=== PATIENT | male | born 1970 | race Caucasian/White ===

== ENCOUNTER 2023-09-27 01:56 | Inpatient (IN) | payer OTHER, SELFPAY ==
[2023-09-26 23:11] VITALS: BP 162/104
--- NOTE | 2023-09-26 23:40 | ED.GENMED ---
History of Present Illness
<ROGELIO Carrero - Last Filed: 09/27/23 00:53>
General
Chief Complaint: Skin Problem
Source: patient
Time Seen by Provider: 09/26/23 23:19
Travel History
Have you had any contact with someone who has COVID-19?: No
Do you have any symptoms of coronavirus? Fever > 100 degrees, chills, cough, shortness of breath, sore throat, loss of taste or smell, muscle aches, or headache?: No
History of Present Illness
History of Present Illness:
Pt is a 52 year old male who presents for a boil in his right axilla that he noticed on Monday. The area has become increasingly red, swollen, and tender since Monday, and he reports some purulent bloody discharge when he attempted to squeeze
the irritation. He also noticed firmness on his axilla, spreading downwards towards his chest beginning on Monday. He states he took 2 Advil when he got off the plane from [place] around 10 pm tonight, noting he came home early from his work trip due
to his worsening symptoms. He reports the Advil brought his pain from a 6/10 in severity to about a 2/10. he denies injury but notes on Monday he did play an intense round of tennis. He denies fever but admits to mild chills. He denies SOB, other
chest pain, sore throat, N/V, abdominal pain, diarrhea, or recent illness. Pt reports he travels for work, noting he went to [place] in July and August, [place] in mid-August, and most recently [place]. He states he is prone to ingrown hairs on his
scalp after going to the [employer], but denies similar in his axilla or groin. He denies known FHx of breast cancer.
Review of Systems
<ROGELIO Carrero - Last Filed: 09/27/23 00:53>
Review of Systems
All Other Systems: Not applicable
Constitutional: Reports weight loss (intentional) and chills
EENT: Reports no symptoms
Respiratory: Reports no symptoms
Cardiac: Reports no symptoms
ABD/GI: Reports no symptoms
: Reports no symptoms
Musculoskeletal: Reports no symptoms
Skin: Reports other (boil of right axilla)
Neurological: Reports no symptoms
Endocrine: Reports no symptoms
Hematologic/Lymphatic: Reports swollen glands (right axilla)
Psychiatric: Reports no symptoms
Phy Exam
<ROGELIO Carrero - Last Filed: 09/27/23 00:53>
General Physical Exam
General Presentation: well appearing and no apparent distress
General age: appears stated age
General Skin: warm, dry and other (Warm, erythematous boil-like mass with regional lymphadenopathy)
General Habitus: normal
General Mental: alert
General Hydration: appears well hydrated
ENT Exam
ENT Exam: EOMI and neck supple
Cardiovascular Exam
Cardiovascular Exam: regular rate/rhythm, no edema and no murmur
Pulmonary Exam
Pulmonary Exam: lungs clear and no respiratory distress
Chest Wall: Right lateral: tenderness
Gastrointestinal Exam
Gastrointestinal Exam: non tender, soft and non distended
Neurological Exam
Neurological Exam: alert and oriented x3
Musculoskeletal Exam
Musculoskeletal Exam: full ROM (of shoulder joints)
Skin Exam
Skin Exam: erythema, redness, tenderness and warmth
Psychiatric Exam
Psychiatric Exam: normal mood/affect
Course
<ROGELIO Carrero - Last Filed: 09/27/23 00:53>
Orders/Labs/Results
Orders:
Orders
09/26/23 23:38
CRP [C-Reactive Protein] Urgent
Complete Blood Count/With Diff Urgent
Comprehensive Metabolic Panel Urgent
Procalcitonin Urgent
PCT Algorithmm Indication: Sepsis
Sed Rate [Erythrocyte Sed Rate] Urgent
09/27/23 00:45
CT Chest With Iv Contrast Urgent
Reason For Exam: right sided mass, abscess
09/27/23 00:57
Piperacillin/Tazo 4.5 Gram [Zosyn] 4.5 gram in 100 ml IV NOW
09/27/23 00:59
Piperacillin/Tazo 4.5 Gram [Zosyn] 4.5 gram in 100 ml IV NOW
Abnormal Lab Results
09/26/23
23:38
WBC 13.2 H 10^3/uL
(4.8-10.8)
RBC 4.68 L 10^6/uL
(4.70-6.10)
MCH 31.8 H pg
(27.0-31.0)
Abs Immat Gran (auto) 0.1 H 10^3/uL
(0-0.05)
Absolute Neuts (auto) 10.2 H 10^3/uL
(1.4-6.5)
Absolute Monos (auto) 1.3 H 10^3/uL
(0.1-0.6)
Immature Gran % 0.8 H %
(0-0.5)
Neutrophils % 77.3 H %
(42.2-75.2)
Lymphocytes % 11.0 L %
(20.5-51.1)
Monocytes % 10.0 H %
(1.7-9.3)
ESR 34 H mm/hour
(0-20)
Glucose 110 H mg/dl
(70-99)
Total Bilirubin 1.5 H mg/dl
(0.2-1.3)
C-Reactive Protein 158.90 H mg/L
(0.0-10.00)
09/26/23 23:38
09/26/23 23:38
Vital Signs
Initial and Last Documented VS:
Initial Vital Signs
Temp Pulse Resp BP Pulse Ox
97.7 F 80 18 162/104 98
09/26/23 23:11 09/26/23 23:11 09/26/23 23:11 09/26/23 23:11 09/26/23 23:11
Last Documented Vital Signs
Temp Pulse Resp BP Pulse Ox
98.4 F 66 18 143/93 97
09/27/23 03:56 09/27/23 03:56 09/27/23 03:56 09/27/23 03:56 09/27/23 03:56
<Aleksey Jimenez, DO - Last Filed: 09/27/23 06:14>
Orders/Labs/Results
Orders:
Orders
09/26/23 23:38
CRP [C-Reactive Protein] Urgent
Complete Blood Count/With Diff Urgent
Comprehensive Metabolic Panel Urgent
Procalcitonin Urgent
PCT Algorithmm Indication: Sepsis
Sed Rate [Erythrocyte Sed Rate] Urgent
09/27/23 00:45
CT Chest With Iv Contrast Urgent
Reason For Exam: right sided mass, abscess
09/27/23 00:57
Piperacillin/Tazo 4.5 Gram [Zosyn] 4.5 gram in 100 ml IV NOW
09/27/23 00:59
Piperacillin/Tazo 4.5 Gram [Zosyn] 4.5 gram in 100 ml IV NOW
Abnormal Lab Results
09/26/23
23:38
WBC 13.2 H 10^3/uL
(4.8-10.8)
RBC 4.68 L 10^6/uL
(4.70-6.10)
MCH 31.8 H pg
(27.0-31.0)
Abs Immat Gran (auto) 0.1 H 10^3/uL
(0-0.05)
Absolute Neuts (auto) 10.2 H 10^3/uL
(1.4-6.5)
Absolute Monos (auto) 1.3 H 10^3/uL
(0.1-0.6)
Immature Gran % 0.8 H %
(0-0.5)
Neutrophils % 77.3 H %
(42.2-75.2)
Lymphocytes % 11.0 L %
(20.5-51.1)
Monocytes % 10.0 H %
(1.7-9.3)
ESR 34 H mm/hour
(0-20)
Glucose 110 H mg/dl
(70-99)
Total Bilirubin 1.5 H mg/dl
(0.2-1.3)
C-Reactive Protein 158.90 H mg/L
(0.0-10.00)
09/26/23 23:38
09/26/23 23:38
Vital Signs
Initial and Last Documented VS:
Initial Vital Signs
Temp Pulse Resp BP Pulse Ox
97.7 F 80 18 162/104 98
09/26/23 23:11 09/26/23 23:11 09/26/23 23:11 09/26/23 23:11 09/26/23 23:11
Last Documented Vital Signs
Temp Pulse Resp BP Pulse Ox
98.4 F 66 18 143/93 97
09/27/23 03:56 09/27/23 03:56 09/27/23 03:56 09/27/23 03:56 09/27/23 03:56
<ROGELIO Carrero - Last Filed: 09/27/23 00:53>
MDM/Problems Addressed
Differential Diagnosis Includes:
Boil, carbuncle, abscess, cellulitis, malignancy
MDM/Problems Addressed:
Boil of right axilla
<ROGELIO Carrero - Last Filed: 09/27/23 00:53>
*Pulse Oximetry
Patient hypoxic: no
*Critical Care Note
Total Time (30-74mins, 75-104mins- exclusive of procedures): Not Applicable
<Aleksey Jimenez DO - Last Filed: 09/27/23 06:14>
Update Note
Update Note:
CT CHEST (with IV contrast)
IMPRESSION:
Mild to moderate ill-defined edematous changes/fluid attenuation in the subcutaneous soft tissues of the right axilla, nonspecific, but presumably related to cellulitis if clinically commensurate. Although findings are potentially phlegmonous,
there is not a clearly loculated or rim-enhancing margin to suggest a convincing organized, drainable abscess by CT at this time. No soft tissue gas.
No pulmonary airspace consolidation.
No pleural effusion or pneumothorax.
Heart is normal in size.
No aortic aneurysm or dissection.
Additional findings: Hepatic cysts.
ED Attending Note
<ROGELIO Carrero - Last Filed: 09/27/23 00:53>
-
Portions of this chart may have been created with voice recognition software.� Occasional wrong word or��sound alike� substitutions may have occurred due to the inherent limitations of voice recognition software.
<Aleksey Jimenez DO - Last Filed: 09/27/23 06:14>
ED Attending Note
Patient seen and examined by attending physician: Yes
I performed the substantive portion of visit, reviewed & personally made and approve the management plan that is documented in note by myself or AZALEA.: Yes
ED Attending Note:
This a pleasant 53-year-old male who presents with right axilla pain. Patient was on a business trip to [place] when he noticed some inflammation under his right arm. It has been progressively increasing so he flew home from his trip to get
evaluated back in the [place]. Patient denies fever but states that he took 2 Advil prior to coming in. Patient has a past medical history for hypertension and hyperlipidemia. Has had several boils in the past but this feels different.
Patient was seen in conjunction with the PA student. I have reviewed and agree with the history and treatment plan presented. On my independent physical exam, patient is awake, alert, and oriented x3, minimal acute distress.. Right axilla is
erythematous with an area of induration. Right chest wall also has an area of induration. Skin is warm and dry. Erythematous on the right arm.
Discharge Plan
Departure
Patient Disposition: Admit
Date of Disposition: 09/27/23
Time of Disposition: 00:56
Admit to: Med/Surg
Presentation/result/management discussed w/ accepting MD/DO: Hospitalist
Condition: Good
Discharge Problem:
Abscess, Cellulitis
Interventions
Interventions:
*Risk Screen - Suicide Last Done: 09/26/23 23:11
*General Assessment Last Done: 09/27/23 00:51
*Neglect/Abuse Screening Last Done: 09/26/23 23:11
ED- Fall Risk Assessment Last Done: 09/27/23 00:58
*ED COVID-19 Vaccine History Last Done: 09/27/23 00:51
*Nursing Disposition Last Done: 09/27/23 00:57
ED-Skin Assessment Last Done: 09/27/23 00:57
Discharge Date and Time
Discharge Date/Time: 09/27/23 02:30
[2023-09-26 23:54] LABS: % Basophils 0.2 % (0-2); % Eosinophils 0.7 % (0-6); % Immature Granulocytes 0.8 % (0-0.5); % Neutrophils 77.3 % (42.2-75.2); Absolute Eosinophils 0.1 10^3/uL (0-0.7); Absolute Immature Granulocytes 0.1 10^3/uL (0-0.05); Absolute Lymphocytes 1.5 10^3/uL (1.2-3.4); Absolute Monocytes 1.3 10^3/uL (0.1-0.6); Absolute Neutrophils 10.2 10^3/uL (1.4-6.5); Hemoglobin 14.9 g/dL (13.0-18.0); Mean Corp Hgb Conc. 35.5 g/dL (33.0-37.0); Mean Corpuscular Hgb 31.8 pg (27.0-31.0); Mean Corpuscular Volume 89.7 fL (80.0-94.0); Nucleated Red Blood Cells % 0 % (-); Platelet Count 203 10^3/uL (130-400); Red Blood Cell Count 4.68 10^6/uL (4.70-6.10); Red Cell Dist. Width 12.2 % (11.5-14.5); White Blood Cell Count 13.2 10^3/uL (4.8-10.8)
[2023-09-27 00:10] LABS: ALT (SGPT) 31 U/L (0-50); AST (SGOT) 30 U/L (17-59); Alkaline Phosphatase 104 U/L (38-126); Blood Urea Nitrogen 11 mg/dl (9-20); Calcium 9.2 mg/dl (8.4-10.2); Carbon Dioxide 23 mmol/L (22-30); Chloride 107 mmol/L (98-107); Glucose 110 mg/dl (70-99); Potassium 3.7 mmol/L (3.5-5.1); Sodium 137 mmol/L (135-145); Total Bilirubin 1.5 mg/dl (0.2-1.3); Total Protein 7.1 g/dl (6.3-8.2); eGFR > 60.00
[2023-09-27 00:19] LABS: Erythrocyte Sed Rate 34 mm/hour (0-20)
[2023-09-27 00:22] LABS: Procalcitonin 0.23 ng/ml (0.0-0.25)
[2023-09-27 00:51] VITALS: BP 131/85
[2023-09-27] MEDS: ZOSYN 100 IV (00:59)
[2023-09-27 03:26] VITALS: BMI 25.5
--- NOTE | 2023-09-27 03:27 | DOWNTIME ---
There was a [employer] Client Manager Of Administration Downtime on 09/27/2023 from 0100 to 09/27/2023 at 0322. Downtime documentation of patient's care, including medication administrations, has been reconciled in the electronic record per guidelines. Refer to the
patient's paper chart under the miscellaneous tab to see printed paper medication records and downtime forms.
--- NOTE | 2023-09-27 03:29 | DOWNTIME ---
There was a [employer] Client Life Guard Downtime on 09/27/2023 from 0100 to 09/27/2023 at 0322. Downtime documentation of patient's care, including medication administrations, has been reconciled in the electronic record per guidelines. Refer to the
patient's paper chart under the miscellaneous tab to see printed paper medication records and downtime forms.
[2023-09-27] MEDS: LR 1000 IV ×3 (03:40→22:58)
[2023-09-27] MEDS: TORADOL 15 MG IV ×3 (03:40→19:49)
[2023-09-27 03:56] VITALS: BP 143/93
--- NOTE | 2023-09-27 03:59 | HPS.HSE ---
Family Physician
-
Family Physician: Carey Onofre MD
Chief Complaint
-
R Axillary Pain / Swelling
History of Present Illness
Patient is a 53y M with PMH significant for hypertension and reflux who presents to ED complaining of pain, swelling and redness in the R armpit for the past 2 days. Patient states that he initially noted a small 'pimple' like lesion in the R
armpit on Monday evening. He traveled to [place] for work at that time. Over the next 24 hours, his symptoms significantly increased with worsening pain, swelling and redness. The symptoms began to extend inferiorly into the axilla. Patient
noted a very small amount of purulent appearing drainage from the initial site. He denies any systemic symptoms of fevers, nausea, etc. He has noted some intermittent chills.
Patient denies prior history of frequent skin abscesses, etc.
He notes that he travels frequently for work - including to [place], [place], etc.
Medical History
Past Medical History
Past Medical History: Reports Other
Additional Past Medical History:
Hypertension
GERD
Seasonal Allergies
Male Pattern Baldness
Past Surgical History: Reports Other
Additional Past Surgical History:
Left Achilles Tendon Repair
Social History
Tobacco: Non-smoker
Alcohol: Occasional
Drug: None
Family History
Family History: Other (Father: CAD ( at age 47))
Allergies / Home Medications
Allergies reflects when Allergies were last updated in [facility].
Home Medications with original date entered in [facility]
Allergy/Medication List:
Allergies
Allergy/AdvReac Type Severity Reaction Status Date / Time
No Known Allergies Allergy Verified 09/26/23 23:17
Home Medications
aspirin 81 mg capsule 81 mg PO DAILY 09/27/23
atorvastatin 10 mg tablet 10 mg PO HS 09/27/23
fexofenadine 180 mg tablet 180 mg PO DAILY 09/27/23
finasteride 1 mg tablet 1 mg PO DAILY 09/27/23
lisinopril 20 mg tablet 20 mg PO DAILY 09/27/23
Review of Systems
-
History Source: Patient
A 12 point ROS was completed and negative except as noted: Yes
Constitutional: Reports Chills; Denies Fever
EENT: Denies Sore Throat
Respiratory: Denies Cough or Trouble Breathing
Cardiac: Denies Chest Pain or Palpitations
Abdomen/GI: Denies Abdominal Pain, Nausea, Vomiting or Diarrhea
: Denies Dysuria or Frequency
Musculoskeletal: Denies Joint Pain or Edema
Skin: Reports Other (Swelling, pain, redness R axilla.)
Neurological: Denies Dizzy or Headache
Psych: Denies Depression or Anxiety
Physical Exam
Vital Signs
Vital Signs
Temp Pulse Resp BP Pulse Ox
98.4 F 66 18 143/93 97
09/27/23 03:56 09/27/23 03:56 09/27/23 03:56 09/27/23 03:56 09/27/23 03:56
Physical Exam
General: Other (53y M in no acute distress.)
HEENT: Moist mucous membranes and PERRLA
Respiratory: Clear; No Wheezes, Rales or Rhonchi
Cardiac: S1/S2 and Regular Rhythm; No Murmur
GI: Soft, Non Tender, Non Distended and Normal Bowel Sounds
Musculoskeletal: No Clubbing and No Cyanosis
Neuro: AO x 3
Hematologic/Lymphatic: Other (Erythema, induration and tenderness in the R axilla with raised / erythematous lesion at anterior / superior aspect. Significant edema, tenderness extending medially / inferiorly into the axilla.)
Laboratory Results
-
Laboratory Results
Total Bilirubin 1.5 mg/dl (0.2-1.3) H 09/26/23 23:38
AST 30 U/L (17-59) 09/26/23 23:38
ALT 31 U/L (0-50) 09/26/23 23:38
Alkaline Phosphatase 104 U/L (38-126) 09/26/23 23:38
Impression/Plan
-
A/P: Patient is a 53y M with PMH significant for HTN who presents to ED complaining of 3-4 days of R axilla pain, swelling and redness.
Right Axillary Abscess
- Admit for further evaluation and treatment.
- IV abx, IVF, pain control, etc.
- CT done this evening shows significant edema but no discrete abscess.
- Physical exam would suggest some degree of drainable abscess.
- Monitor for clinical improvement on IV abx.
- Surgery evaluation for possible I&D, etc should symptoms worsen or persist.
- Monitor for any new / worsening symptoms.
Benign Hypertension
- Stable. Continue lisinopril with holding parameters.
GERD
- Stable. Continue daily PPI.
DVT Prophylaxis: SCDs
Code Status: Full
[2023-09-27] MEDS: ANCEF 5 IV ×3 (04:10→19:49)
[2023-09-27] MEDS: VANCOCIN 300 ML IV (04:10)
[2023-09-27] MEDS: VANCOCIN 300 MG IV (04:10)
[2023-09-27 06:46] LABS: Hematocrit 41.2 % (39.0-52.0); Hemoglobin 14.1 g/dL (13.0-18.0); Mean Corp Hgb Conc. 34.2 g/dL (33.0-37.0); Mean Corpuscular Hgb 31.2 pg (27.0-31.0); Mean Corpuscular Volume 91.2 fL (80.0-94.0); Mean Platelet Volume 10.1 fL (7.4-10.4); Platelet Count 183 10^3/uL (130-400); Red Blood Cell Count 4.52 10^6/uL (4.70-6.10); Red Cell Dist. Width 12.3 % (11.5-14.5); White Blood Cell Count 11.3 10^3/uL (4.8-10.8)
--- NOTE | 2023-09-27 07:24 | W.PN.HOSP.TC ---
Today's Communication/Plan
-
IV antibiotics. Pain control. Surgery consult.
Assessment / Plan
Assessment / Plan
Physical Exam
General: Acutely ill. Nontoxic appearance.
HEENT: Moist mucous membranes and PERRLA
Respiratory: Clear; No Wheezes, Rales or Rhonchi
Cardiac: S1/S2 and Regular Rhythm; No Murmur
GI: Soft, Non Tender, Non Distended and Normal Bowel Sounds
Musculoskeletal: No Clubbing and No Cyanosis
Neuro: AO x 3
Hematologic/Lymphatic: Other (Erythema, induration and tenderness in the R axilla with raised / erythematous lesion at anterior / superior aspect. Significant edema, tenderness extending medially / inferiorly into the axilla
A/P:
Right Axillary skin soft tissue infection and possibly a component of hidradenitis:
- IV abx, IVF, pain control, etc.
- CT done this evening shows significant edema but no discrete abscess.
- Monitor for clinical improvement on IV abx.
- Surgery evaluation
- Monitor for any new / worsening symptoms.
Benign Hypertension
- Stable. Continue lisinopril with holding parameters.
GERD
- Stable. Continue daily PPI.
DVT Prophylaxis: SCDs
Code Status: Full
Anticipated Discharge: 24 - 48 hours
Subjective/Interval History
-
Date of Service: September 27, 2023
Patient with some right armpit discomfort. Afebrile.
Objective Data
-
Labs:
Laboratory Results
09/26/23 09/27/23
23:38 06:27
WBC 13.2 H 11.3 H
Hgb 14.9 14.1
Hct 42.0 41.2
Plt Count 203 183
Sodium 137 Pending
Potassium 3.7 Pending
Chloride 107 Pending
Carbon Dioxide 23 Pending
BUN 11 Pending
Creatinine 0.8 Pending
Glucose 110 H Pending
Calcium 9.2 Pending
Total Bilirubin 1.5 H
AST 30
ALT 31
Alkaline Phosphatase 104
Vital Signs:
Vital Signs
Temp Pulse Resp BP Pulse Ox
98.4 F 66 18 143/93 97
09/27/23 03:56 09/27/23 03:56 09/27/23 03:56 09/27/23 03:56 09/27/23 03:56
I&O
09/26/23 09/27/23 09/28/23
06:59 06:59 06:59
Intake Total 730 / 730 480 / 480
Balance 730 / 730 480 / 480
Review of Systems
-
All other systems: Reviewed and negative
[2023-09-27 07:30] VITALS: BP 148/88
[2023-09-27 07:44] LABS: Blood Urea Nitrogen 11 mg/dl (9-20); Calcium 8.7 mg/dl (8.4-10.2); Carbon Dioxide 26 mmol/L (22-30); Chloride 107 mmol/L (98-107); Estimated Creatinine Clearance 96 ml/min; Glucose 90 mg/dl (70-99); Potassium 4.1 mmol/L (3.5-5.1); Sodium 137 mmol/L (135-145); eGFR > 60.00
[2023-09-27] MEDS: CLARITIN 10 MG PO (07:47)
[2023-09-27] MEDS: ZESTRIL 20 MG PO (07:47)
[2023-09-27] MEDS: PROTONIX 40 MG PO (07:47)
[2023-09-27] MEDS: TYLENOL 650 MG PO (07:47)
--- NOTE | 2023-09-27 09:09 | PHA.VAN.IN ---
Assessment
- Assessment
Renal Function: Appears similar to baseline
Concomitant Antimicrobials: cefazolin
AUC Dosing Plan
- Dosing Variables
Dosing Weight (kg): 78
Dosing CrCl (ml/min): 96
Vd coefficient (L/kg): 0.7
- Empiric Dosing
Initial / Loading Dose: 1500mg - 09/26 04:10
Maintenance Regimen: Vanc 1000mg Q12H starting at 1800
Estimated AUC (mcg*h/mL): 454
Estimated Peak (mcg*h/mL): 28.8
Estimated Trough (mcg/ml): 11.4
Estimated Half Life (H): 8.2
- Monitoring
No levels ordered at this time: consider levels in next few days
Pharmacokinetics Vancomycin I
- -
Patient Age: 53
Patient Sex: Male
Vancomycin Day #: 1
Indication: Skin And Soft Tissue
Requesting Provider: Dr. Jo
Pertinent Antimicrobial Allergies:
NKDA
Height / Weight:
Height 5 ft 9 in
Actual Weight 78.273 kg
- Vital Signs / Lab Results
Temp Pulse Resp BP Pulse Ox
98.5 F 68 16 148/88 98
09/27/23 07:30 09/27/23 07:47 09/27/23 07:30 09/27/23 07:47 09/27/23 07:30
Lab Results - Hematology
09/26/23 09/27/23
23:38 06:27
WBC 13.2 H 11.3 H
Lab Results - Chemistry
09/26/23 09/27/23
23:38 06:27
BUN 11 11
Creatinine 0.8 0.9
Estimated Creat Clear 96
Albumin 4.0
--- NOTE | 2023-09-27 11:02 | CON.GS ---
Consultation
-
Requesting Provider: Sandro
Performing Provider: Chon
Reason for Consultation: Soft tissue infection, right axilla
Medical History
-
Chief Complaint: Right axilla redness and swelling
History of Present Illness:
53M with 5 day history of progressive redness, tenderness and swelling to his right axilla that began as a 'pimple.' Endorses subjective fevers. Denies n/v, denies anorexia. Never had similar issue before. He has had some limited purulent drainage.
Began after a tennis match, then he was traveling overseas and it progressed, prompting him to cut his trip short and come straight from the airport to the hospital.
Past Medical History
Past Medical History: GERD and HTN
Past Surgical History: Orthopedic (left achilles tendon repair)
Social History
Tobacco: Non-Smoker
Alcohol: Occasional
Drug: None
Allergies / Home Medications
Allergy/AdvReac Type Severity Reaction Status Date / Time
No Known Allergies Allergy Verified 09/26/23 23:17
�Medication �Instructions �Recorded �Confirmed �Type
aspirin 81 mg capsule 81 mg PO DAILY 09/27/23 09/27/23 History
atorvastatin 10 mg tablet 10 mg PO HS 09/27/23 09/27/23 History
fexofenadine 180 mg tablet 180 mg PO DAILY 09/27/23 09/27/23 History
finasteride 1 mg tablet 1 mg PO DAILY 09/27/23 09/27/23 History
lisinopril 20 mg tablet 20 mg PO DAILY 09/27/23 09/27/23 History
Review of Systems
-
A 10 point review of systems was completed, and was negative except as per HPI.
Physical Exam
Vital Signs
Temp Pulse Resp BP Pulse Ox
98.5 F 68 16 148/88 98
09/27/23 07:30 09/27/23 07:47 09/27/23 07:30 09/27/23 07:47 09/27/23 07:30
09/26/23 09/27/23 09/28/23
06:59 06:59 06:59
Actual Weight 78.273 kg
Body Mass Index (BMI) 25.5
Lab Results
09/27/23 06:27
09/27/23 06:27
WBC 11.3 10^3/uL (4.8-10.8) H 09/27/23 06:27
Hgb 14.1 g/dL (13.0-18.0) 09/27/23 06:
Hct 41.2 % (39.0-52.0) 09/27/23 06:
Plt Count 183 10^3/uL (130-400) 09/27/23 06:27
Abs Immat Gran (auto) 0.1 10^3/uL (0-0.05) H 09/26/23 23:38
Neutrophils % 77.3 % (42.2-75.2) H 09/26/23 23:38
Physical Exam
General: Well Developed, Well Nourished and No Apparent Distress
GI: Soft and Non Tender
Skin: Warm, Dry and Other (right axilla blanching erythema and induration, some raised lumps in the hair bearing area without fluctuanace without puncta and without expressible drainage, mild ttp)
Neuro: AO x 3
Psych: Calm
Data Reviewed
-
CT Scan: Image Personally Visualized and interpreted, Report Reviewed by me, Discussed with Physician and Discussed with Patient
Labs: Labs Reviewed by me and Discussed with Patient
Assessment / Plan
-
53M with soft tissue infection of the right axilla without drainable abscess
AFVSS, blanching erythema and induration on exam
WBC improving
CT with soft tissue stranding but no drainable collection
Plan:
No indication for surgical intervention
Agree with IV abx
Would add warm compresses
Please call with questions
[2023-09-27] MEDS: FLUSH (NSS) 2 FLUSH IV (11:18)
[2023-09-27 15:30] VITALS: BP 136/87
[2023-09-27] MEDS: VANCOCIN 200 IV (17:02)
[2023-09-27] MEDS: TYLENOL PO (17:03)
[2023-09-27] MEDS: LIPITOR 10 MG PO (17:03)
[2023-09-27] MEDS: DILAUDID 0.5 MG IV (17:07)
[2023-09-27 23:00] VITALS: BP 131/81
[2023-09-28] MEDS: TORADOL 15 MG IV ×3 (02:32→18:19)
[2023-09-28] MEDS: ANCEF 5 IV ×3 (03:44→20:34)
[2023-09-28] MEDS: VANCOCIN 200 IV ×2 (05:19→17:11)
[2023-09-28 06:55] LABS: Blood Urea Nitrogen 11 mg/dl (9-20); Calcium 8.7 mg/dl (8.4-10.2); Carbon Dioxide 28 mmol/L (22-30); Chloride 102 mmol/L (98-107); Estimated Creatinine Clearance 108 ml/min; Glucose 146 mg/dl (70-99); Potassium 4.5 mmol/L (3.5-5.1); Sodium 138 mmol/L (135-145); eGFR > 60.00
[2023-09-28 06:58] LABS: % Basophils 0.2 % (0-2); % Eosinophils 1.9 % (0-6); % Immature Granulocytes 0.9 % (0-0.5); % Lymphocytes 10.3 % (20.5-51.1); % Monocytes 9.3 % (1.7-9.3); % Neutrophils 77.4 % (42.2-75.2); Absolute Eosinophils 0.2 10^3/uL (0-0.7); Absolute Immature Granulocytes 0.1 10^3/uL (0-0.05); Absolute Lymphocytes 1.1 10^3/uL (1.2-3.4); Hematocrit 41.7 % (39.0-52.0); Hemoglobin 14.2 g/dL (13.0-18.0); Mean Corp Hgb Conc. 34.1 g/dL (33.0-37.0); Mean Corpuscular Hgb 31.2 pg (27.0-31.0); Mean Corpuscular Volume 91.6 fL (80.0-94.0); Nucleated Red Blood Cells % 0 % (-); Platelet Count 200 10^3/uL (130-400); Red Blood Cell Count 4.55 10^6/uL (4.70-6.10); Red Cell Dist. Width 12.3 % (11.5-14.5); White Blood Cell Count 10.3 10^3/uL (4.8-10.8)
[2023-09-28 07:00] VITALS: BP 139/88
[2023-09-28] MEDS: PROTONIX 40 MG PO (07:37)
[2023-09-28] MEDS: CLARITIN 10 MG PO (07:37)
[2023-09-28] MEDS: ZESTRIL 20 MG PO (07:37)
[2023-09-28] MEDS: LR 1000 IV (07:53)
--- NOTE | 2023-09-28 08:27 | W.PN.HOSP.TC ---
Today's Communication/Plan
-
IV antibiotics.
Assessment / Plan
Assessment / Plan
Physical Exam
General: Acutely ill. Nontoxic appearance.
HEENT: Moist mucous membranes and PERRLA
Respiratory: Clear; No Wheezes, Rales or Rhonchi
Cardiac: S1/S2 and Regular Rhythm; No Murmur
GI: Soft, Non Tender, Non Distended and Normal Bowel Sounds
Musculoskeletal: No Clubbing and No Cyanosis
Neuro: AO x 3
Hematologic/Lymphatic: Other (Erythema, induration and tenderness in the R axilla with raised / erythematous lesion at anterior / superior aspect. Significant edema, tenderness extending medially / inferiorly into the axilla
A/P:
Right Axillary skin soft tissue infection and possibly a component of hidradenitis:
- IV abx, IVF, pain control, etc.--> IV cefazolin and vancomycin. Stop IV fluids today
- CT done shows significant edema but no discrete abscess.
- Monitor for clinical improvement on IV abx.
- Surgery evaluation appreciated--> no need for surgical intervention
- Monitor for any new / worsening symptoms.
-Continue IV antibiotics today and likely will switch to oral antibiotics tomorrow if improving
-WBC from 13.2 trended down to 10.3 today
Benign Hypertension
- Stable. Continue lisinopril with holding parameters.
GERD
- Stable. Continue daily PPI.
DVT Prophylaxis: SCDs
Code Status: Full
Anticipated Discharge: 24 - 48 hours
Subjective/Interval History
-
Date of Service: September 28, 2023
Patient feels better today. He has self drainage of lesions in the right armpit. Afebrile today
Objective Data
-
Labs:
Laboratory Results
09/28/23
06:15
WBC 10.3
Hgb 14.2
Hct 41.7
Plt Count 200
Sodium 138
Potassium 4.5
Chloride 102
Carbon Dioxide 28
BUN 11
Creatinine 0.8
Glucose 146 H
Calcium 8.7
Vital Signs:
Vital Signs
Temp Pulse Resp BP Pulse Ox
98.2 F 62 18 139/88 96
09/28/23 07:00 09/28/23 07:00 09/28/23 07:00 09/28/23 07:00 09/28/23 07:00
I&O
09/27/23 09/28/23 09/29/23
06:59 06:59 06:59
Intake Total 730 / 730 3220 / 3220
Balance 730 / 730 3220 / 3220
Review of Systems
-
All other systems: Reviewed and negative
--- NOTE | 2023-09-28 08:58 | PHA.VAN.FU ---
Vancomycin Assessment / Plan
- Assessment
Renal Function: Stable
WBC's are: WNL
In the past 24 hrs, patient has been: Afebrile
Concomitant Antimicrobials: cefazolin
- Dosing Plan
Continue: Vanc 1000mg Q12H
- Monitoring Plan
No level(s) ordered at this time: hold off on levels given short course anticipated
- Follow Up
Pharmacy will continue to follow.
Vancomycin Follow UP
- -
Patient Age: 53
Patient Sex: Male
Vancomycin Day #: 2
Indication: Skin And Soft Tissue
Requesting Provider: Dr. Jo
Pertinent Antimicrobial Allergies:
NKDA
Height / Weight:
Height 5 ft 9 in
Actual Weight 78.273 kg
- Vital Signs / Lab Results
Temp Pulse Resp BP Pulse Ox
98.2 F 62 18 139/88 96
09/28/23 07:00 09/28/23 07:00 09/28/23 07:00 09/28/23 07:00 09/28/23 07:00
Lab Results - Hematology
09/26/23 09/27/23 09/28/23
23:38 06:27 06:15
WBC 13.2 H 11.3 H 10.3
Lab Results - Chemistry
09/26/23 09/27/23 09/28/23
23:38 06:27 06:15
BUN 11 11 11
Creatinine 0.8 0.9 0.8
Estimated Creat Clear 96 108
Albumin 4.0
Microbiology Results
09/27/23 05:40 MRSA Screen - Final
Nose No Methicillin Resistant Staphylococcus aureus isolated.
[2023-09-28 15:00] VITALS: BP 132/83
--- NOTE | 2023-09-28 15:40 | PN.CDI ---
CDI
- -
CDI:
Physician Documentation Request
Admit Date: 09/27/23 01:56
Dear Doctor Khoa,
Please review the following and provide your response in the progress notes.
Clinical Indicators:
Pt admitted with right axilla Abscess
Documented per ED,' .. Abscess, Cellulitis..'
Chest CT: Mild to moderate ill-defined edematous changes/fluid attenuation in the subcutaneous soft tissues of the right axilla, nonspecific, but presumably related to cellulitis...'
Progress notes 09/26&09/27 ,'Right Axillary skin soft tissue infection and possibly a component of hidradenitis...IV cefazolin and vancomycin. '
Please Further Specify the documented Right Axillary skin soft tissue infection:
Right Axilla Cellulitis
Right Axilla Hidradenitis only
Right Axilla Abscess/Cellulitis
Other
Use of terms such as suspected, likely, concern for, or probable (associated with a specific diagnosis that is being evaluated, monitored, or treated as if it exists) are acceptable and can be coded in the inpatient setting, when documented at the
time of discharge.
Thank you,
Josy Patino RN
CDI Specialist
[address]
Please use your independent medical judgment in providing your response.
[2023-09-28] MEDS: LIPITOR 10 MG PO (17:11)
[2023-09-28 23:30] VITALS: BP 125/78
[2023-09-29] MEDS: TORADOL 15 MG IV (02:58)
[2023-09-29] MEDS: ANCEF 5 IV (02:59)
[2023-09-29] MEDS: VANCOCIN 200 IV (06:12)
[2023-09-29 07:32] VITALS: BP 153/91
[2023-09-29] MEDS: ZESTRIL 20 MG PO (08:04)
[2023-09-29] MEDS: CLARITIN 10 MG PO (08:05)
[2023-09-29] MEDS: PROTONIX 40 MG PO (08:05)
--- NOTE | 2023-09-29 08:53 | W.PN.HOSP.TC ---
Addendum entered and electronically signed by Amadou Couch MD 09/29/23 14:20:
Right axillary abscess self drainage/cellulitis, POA. Suspicious for possible right axilla suppurativa hidradenitis.
Original Note:
Today's Communication/Plan
-
Continue current management. Discharge planning today
Assessment / Plan
Assessment / Plan
Physical Exam
General: Acutely ill. Nontoxic appearance.
HEENT: Moist mucous membranes and PERRLA
Respiratory: Clear; No Wheezes, Rales or Rhonchi
Cardiac: S1/S2 and Regular Rhythm; No Murmur
GI: Soft, Non Tender, Non Distended and Normal Bowel Sounds
Musculoskeletal: No Clubbing and No Cyanosis
Neuro: AO x 3
Hematologic/Lymphatic: Other (Erythema, induration and tenderness in the R axilla with raised / erythematous lesion at anterior / superior aspect. Significant edema, tenderness extending medially / inferiorly into the axilla
A/P:
Right Axillary skin soft tissue infection and possibly a component of hidradenitis:
- Stop IV antibiotics and switch to oral antibiotics today
- CT done shows significant edema but no discrete abscess.
- Monitor for clinical improvement
- Surgery evaluation appreciated--> no need for surgical intervention
- Monitor for any new / worsening symptoms.
-Continue IV antibiotics today and likely will switch to oral antibiotics today. Will change to Bactrim and have him follow-up potassium and renal function within 1 week.
-WBC from 13.2 trended down to 10.3 yesterday
Benign Hypertension
- Stable. Continue lisinopril with holding parameters.
GERD
- Stable. Continue daily PPI.
DVT Prophylaxis: SCDs
Code Status: Full
Anticipated Discharge: Today
Subjective/Interval History
-
Date of Service: September 29, 2023
Patient feels much better today. Afebrile
Objective Data
-
Vital Signs:
Vital Signs
Temp Pulse Resp BP Pulse Ox
98.7 F 56 16 153/91 96
09/29/23 07:32 09/29/23 07:32 09/29/23 07:32 09/29/23 07:32 09/29/23 07:32
I&O
09/28/23 09/29/23 09/30/23
06:59 06:59 06:59
Intake Total 3220 / 3220 1440 / 1440
Balance 3220 / 3220 1440 / 1440
--- NOTE | 2023-09-29 11:12 | PHA.VAN.FU ---
Vancomycin Assessment / Plan
- Assessment
Renal Function: Stable
WBC's are: WNL
In the past 24 hrs, patient has been: Afebrile
Concomitant Antimicrobials: cefazolin
- Dosing Plan
Continue: vancomycin 1000 mg q12h
- Monitoring Plan
No level(s) ordered at this time: likely switch to PO abx today
- Follow Up
Pharmacy will continue to follow.
Vancomycin Follow UP
- -
Patient Age: 53
Patient Sex: Male
Vancomycin Day #: 3
Indication: Skin And Soft Tissue
Requesting Provider: Dr. Jo
Pertinent Antimicrobial Allergies:
NKDA
Height / Weight:
Height 5 ft 9 in
Actual Weight 78.273 kg
- Vital Signs / Lab Results
Temp Pulse Resp BP Pulse Ox
98.7 F 56 16 153/91 96
09/29/23 07:32 09/29/23 07:32 09/29/23 07:32 09/29/23 07:32 09/29/23 07:32
Lab Results - Hematology
09/26/23 09/27/23 09/28/23
23:38 06:27 06:15
WBC 13.2 H 11.3 H 10.3
Lab Results - Chemistry
09/26/23 09/27/23 09/28/23
23:38 06:27 06:15
BUN 11 11 11
Creatinine 0.8 0.9 0.8
Estimated Creat Clear 96 108
Albumin 4.0
Microbiology Results
09/27/23 05:40 MRSA Screen - Final
Nose No Methicillin Resistant Staphylococcus aureus isolated.
[2023-09-29 12:10] VITALS: BP 132/83
--- NOTE | 2023-09-29 12:33 | W.DCSUMMARY ---
Discharge Summary
Discharge Data
Date of Admission: 09/27/23
Date of Discharge: 09/29/23
-
Pending Results: No
Hospital Course
Patient 53 years old with history of hypertension GERD presented to the hospital with right armpit progressive redness and tenderness and swelling. He was diagnosed with cellulitis of right axilla. Surgery consulted. Surgery did not feel the need
for any surgical intervention. Patient has some self drainage of that area and he was kept on IV antibiotics. Patient symptomatically improved substantially with antibiotics and local care. He is eager to go home today and he is afebrile. His
WBC was 13.2 and has came down to normal 10.3-day prior to discharge. He will be discharged to [facility] condition today.
Discharge Plan
-
Patient Disposition: Home (Routine Discharge)
Discharge Diagnosis/Procedures: Acute right axilla cellulitis and self drainage abscess. Possible suppurative hidradenitis.
Condition: Fair
Diet: Regular
Activity: As tolerated
Driving Restrictions: As prior to admission
Blood Work: Please PCP to order CBC, BMP within 1 week.
Referrals:
Wilman Givens MD [Active] - in two to four weeks (Right axilla infection if it fails to improve.)
Carey Onofre MD [Family Provider] - in less than 1 week
Prescriptions:
New
acetaminophen 325 mg Tablet
650 mg PO Q4HPRN PRN (Reason: MILD PPAIN/ TEMP > 101) Qty: 20 0RF
sulfamethoxazole-trimethoprim 800-160 mg Tablet
1 tab PO BID 10 Days Qty: 20 0RF
Continued
atorvastatin 10 mg Tablet
10 mg PO HS
lisinopril 20 mg Tablet
20 mg PO DAILY
fexofenadine 180 mg Tablet
180 mg PO DAILY
finasteride 1 mg Tablet
1 mg PO QPM
aspirin 81 mg Capsule
81 mg PO DAILY
multivitamin Tablet
1 tab PO QPM
inulin-sorbitol 2 gram Tablet,Chewable
1 tab PO BID
omega 3-vkl-dzx-fish oil [Fish Oil] 1,000 mg (120 mg-180 mg) Capsule
1 cap PO BID
Discharge Orders:
Discharge Patient (As Directed); Ordered 09/29/23
Ordered By: Amadou Couch
Discharge Date and Time
Discharge Date/Time: 09/29/23 16:48
Print Language: LITHUANIAN
--- NOTE | 2023-09-29 12:38 | CM ---
Addendum entered by BG Og 09/29/23 12:42:
Plan: No needs.
Original Note:
Reviewed chart, met with patient to obtain information for assessment. Patient lives with his spouse in a two story home with two steps to enter. He is independent with his ADLs, personal care, dressing, bathing, toileting and ambulates without
device.
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
He has no DME.
Has has never had VN services
Patient has a prescription plan and uses the [facility] pharmacy in [place] for all of his medications.
His PCP is Dr. Carey Onofre
[2023-09-29] MEDS: ANCEF IV (12:49)
[2023-09-29] MEDS: BACTRIM DS 800 MG/160 MG 1 TABLET PO (12:51)
[2023-09-29 13:00] VITALS: BP 146/88
--- NOTE | 2023-09-29 14:11 | PTCARENOTE ---
Discharged instructions reviewed. Pt without questions. Wheelchair escort offered, but pt insisted on walking self out.
== END 2023-09-29 16:48 | disposition home or self-care (01) | DRG 603 ==
LOC: 3 WEST ACU 01:56
PROVIDERS: ADMITTING PHYSICIAN Hospitalist; ATTENDING PHYSICIAN Hospitalist; CONSULT PHYSICIAN Surgery; EMERGENCY PHYSICIAN Student in an Organized Health Care Education/Training Program; FAMILY PHYSICIAN Family Medicine
DX: L02.411 Cutaneous abscess of right axilla (principal); L03.111 Cellulitis of right axilla; L73.2 Hidradenitis suppurativa; I10 Essential (primary) hypertension; K21.9 Gastro-esophageal reflux disease without esophagitis
CPT/HCPCS: 71260; 80048; 80053; 84145; 85025; 85027; 85652; 86140; 87070; 96374; 99285; Q9967

== ENCOUNTER → 2024-05-06 06:26 | Day surgery (SDC) | payer OTHER, SELFPAY | LOC: GI 06:26 | PROVIDERS: ATTENDING PHYSICIAN Internal Medicine Gastroenterology | DX: Z12.11 Encounter for screening for malignant neoplasm of colon (principal); K57.30 Diverticulosis of large intestine without perforation or abscess without bleeding; Z86.0100 Personal history of colon polyps, unspecified; K64.8 Other hemorrhoids; K63.5 Polyp of colon | CPT/HCPCS: 45380; 88305 ==

== ENCOUNTER → 2024-09-26 08:24 | Outpatient (REF) | payer SELFPAY | LOC: HWRAD 08:24 | PROVIDERS: ATTENDING PHYSICIAN Family Medicine; REFERRING PHYSICIAN Internal Medicine Cardiovascular Disease | DX: I10 Essential (primary) hypertension (principal); E78.2 Mixed hyperlipidemia; Z82.49 Family history of ischemic heart disease and other diseases of the circulatory system | CPT/HCPCS: 75571 ==